=== PATIENT | female | born 1975 | race Caucasian/White ===

== ENCOUNTER 2017-06-06 06:44 | Day surgery (SDC) | payer OTHER ==
[~2017-06-06 06:44] MED LIST: ADVIL200 M1 PO; IMODIUM A-D2 MG PO; LEVAQUIN500 MG PO
== END 2017-06-06 13:30 | disposition home or self-care (01) ==
LOC: AMB-ENDOS 06:44
DX: N80.5 Endometriosis of intestine (principal); K92.1 Melena; Z93.2 Ileostomy status

== ENCOUNTER 2018-10-30 07:06 | Outpatient (CLI) | payer OTHER | END 2018-10-30 07:07 | disposition home or self-care (01) | LOC: NUCLEAR 07:06 | DX: R07.89 Other chest pain (principal); I20.9 Angina pectoris, unspecified | CPT/HCPCS: 78452; 93017; A9500 ==

== ENCOUNTER 2023-01-08 07:19 | Outpatient (CLI) | payer OTHER | END 2023-01-08 07:26 | disposition home or self-care (01) | LOC: TOM 07:19 | PROVIDERS: ATTEND Colon & Rectal Surgery | DX: K58.1 Irritable bowel syndrome with constipation (principal) ==

== ENCOUNTER 2023-02-04 09:10 | Outpatient (CLI) | payer OTHER | END 2023-02-04 10:00 | disposition home or self-care (01) | LOC: RAD 09:10 | PROVIDERS: ATTEND Physical Medicine & Rehabilitation Pediatric Rehabilitation Medicine | DX: M75.111 Incomplete rotator cuff tear or rupture of right shoulder, not specified as traumatic (principal); M77.11 Lateral epicondylitis, right elbow; M41.9 Scoliosis, unspecified | CPT/HCPCS: 73221 ==